=== PATIENT | female | born 1980 | race Caucasian/White ===

== ENCOUNTER → 2016-12-23 | Outpatient (CLI) | payer BC ==
[~2016-12-23] MED LIST: DIAZ5 PO; DICL50TA3 PO; PERC5TAB12 PO; PRIL20CA9 PO; ROBA500T PO; TRAM50TA PO
[2016-12-23 15:48] LABS: AUTOMATED NEUTROPHIL # 7.9 TH/MM3 (1.8-7.7); BASOPHIL # 0.1 TH/MM3 (0-0.2); BASOPHIL % 0.5 % (0.0-2.0); EOSINOPHIL # 0.2 TH/MM3 (0-0.4); HEMATOCRIT 43.7 % (35.0-46.0); HEMO FLAGS DIFF FINAL; LYMPH % 22.3 % (9.0-44.0); LYMPHOCYTE # 2.5 TH/MM3 (1.0-4.8); MEAN CELL VOLUME 85.2 FL (80.0-100.0); MEAN CORPUSCULAR HEMOGLOBIN 27.9 PG (27.0-34.0); MEAN CORPUSCULAR HGB CONC 32.7 % (32.0-36.0); MONO % 5.3 % (0.0-8.0); NEUT % 69.9 % (16.0-70.0); PLATELET COUNT 239 TH/MM3 (150-450); RED BLOOD COUNT 5.13 MIL/MM3 (4.00-5.30); WHITE BLOOD COUNT 11.3 TH/MM3 (4.0-11.0)
[2016-12-23 15:52] LABS: BACTERIA, URINE RARE /hpf; BLOOD, URINE NEG (NEG); GLUCOSE,URINE NEG (NEG); KETONE, URINE NEG (NEG); MUCUS URINE FEW /lpf (OCC); NITRITE,URINE NEG (NEG); SQUAMOUS EPITHELIAL CELL URINE 3 /hpf (0-5); URINE COLOR LIGHT-YELLOW (YELLW/STRAW)
[2016-12-23 16:05] LABS: ANION GAP 9 MEQ/L (5-15); BICARBONATE 30.4 MEQ/L (21.0-32.0); BLOOD UREA NITROGEN 15 MG/DL (7-18); CHLORIDE 102 MEQ/L (98-107); GLOMERULAR FILTRATION RATE 78 ML/MIN (>89); GLUCOSE,FASTING 100 MG/DL (74-99); POTASSIUM 4.3 MEQ/L (3.5-5.1); SODIUM (NA) 141 MEQ/L (136-145)
[2016-12-23 16:12] LABS: BHCG SCREEN QUALITATIVE LESS THAN 1 MIU/ML (0-5)
== END ==
LOC: CPRE 14:12
PROVIDERS: ATTEND Obstetrics & Gynecology
DX: Z01.812 Encounter for preprocedural laboratory examination (principal); R10.2 Pelvic and perineal pain; N94.10 Unspecified dyspareunia; N92.0 Excessive and frequent menstruation with regular cycle
CPT/HCPCS: 36415; 80048; 81001; 84703; 85025

== ENCOUNTER 2016-12-29 07:55 | Observation (INO) | payer BC ==
[~2016-12-29] VITALS: Ht 165.1 cm; Wt 88.5 kg
[~2016-12-29 07:55] MED LIST changes: -DIAZ5 PO; -PERC5TAB12 PO; -PRIL20CA9 PO; -ROBA500T PO; -TRAM50TA PO
[2016-12-29] MEDS ORDERED: METOPROLOL TARTRATE 25 MG TAB PO PRN (08:30)
[2016-12-29] MEDS ORDERED: INSULIN HUMAN REGULAR 1,000 UNITS/10 ML VIAL SQ PRN (08:30)
[2016-12-29] MEDS ORDERED: ceFAZolin 2 GM PREMIX 50 ML IV SCH (08:30)
[2016-12-29] MEDS ORDERED: DIAZ5 PO (08:39)
[2016-12-29] MEDS ORDERED: PERC5TAB12 PO (08:39)
[2016-12-29 08:45] VITALS: BP 126/81; PULSE 69; RESP 18; TEMP 98.4; O2SAT 100
[2016-12-29] MEDS ORDERED: SODIUM CHLORID 0.9% 500 ML IV SCH (09:00)
[2016-12-29] MEDS ORDERED: LACTATED RINGER'S 1000 ML IV SCH (09:00)
[2016-12-29] MEDS ORDERED: ACETAMINOPHEN 1000 MG/100 ML VIAL IV ONE (10:35)
[2016-12-29] MEDS ORDERED: FAMOTIDINE 20 MG/2 ML VIAL ONE (10:35)
[2016-12-29] MEDS ORDERED: PROPOFOL 200 MG/20 ML AMP IV ONE (12:00)
[2016-12-29] MEDS ORDERED: LACTATED RINGER'S 1000 ML INJ 1,000 ML IV ONE (12:00)
[2016-12-29] MEDS ORDERED: NEOSTIGMINE 3 MG/3 ML SYR IV ONE (12:00)
[2016-12-29] MEDS ORDERED: ONDANSETRON HCL 4 MG/2 ML VIAL IV PUSH ONE (12:00)
[2016-12-29] MEDS ORDERED: ESTROGENS CONJUGATED VAG CREA 15 APPL/30 GM TUBE ONE (12:10)
[2016-12-29] MEDS ORDERED: MIDAZOLAM HCL 2 MG/2 ML VIAL ONE (12:32)
[2016-12-29] MEDS ORDERED: DEXAMETHASONE SOD PHOS 4 MG/ML VIAL ONE (12:32)
[2016-12-29] MEDS ORDERED: ONDANSETRON HCL 4 MG/2 ML VIAL IVP PRN ×2 (14:45)
[2016-12-29] MEDS ORDERED: SODIUM CHLORIDE 0.9% FLUSH 10 ML FLUSH IV FLUSH PRN (14:45)
[2016-12-29] MEDS ORDERED: diphenhydrAMINE HCL 25 MG CAP PO PRN (14:45)
[2016-12-29] MEDS ORDERED: *morphine SULFATE 8 MG/ML PERIprocedure ONLY ONE ×3 (14:58→15:52)
[2016-12-29] MEDS ORDERED: *MEPERIDINE 25 MG INJ VIAL PERIprocedural Use ONLY ONE (15:01)
[2016-12-29] MEDS ORDERED: fentaNYL CITRATE 250 MCG/5 ML AMP ONE (15:01)
[2016-12-29] MEDS ORDERED: HYDROmorphone HCL PF 1 MG/ML VIAL IVP PRN (16:00)
[2016-12-29] MEDS: LACTATED RINGER'S 1000 ML INJ 1,000 ML IV SCH (16:00)
[2016-12-29] MEDS ORDERED: ZOLPIDEM TARTRATE 5 MG TAB PO PRN (16:00)
[2016-12-29] MEDS ORDERED: oxyCODONE/ACETAMINOPHEN 5 MG/325 MG TAB PO PRN (16:00)
[2016-12-29 17:00] VITALS: BP 119/63; PULSE 74; RESP 20; TEMP 97.3; O2SAT 100
[2016-12-29] MEDS: DOCUSATE SODIUM 100 MG CAP PO SCH (17:22)
[2016-12-29] MEDS: oxyCODONE/ACETAMINOPHEN 5 MG/325 MG TAB PO PRN (17:23)
[2016-12-29 21:00] VITALS: BP 122/73; PULSE 73; RESP 16; TEMP 97.1; O2SAT 100
[2016-12-29] MEDS: SODIUM CHLORIDE 0.9% FLUSH 10 ML FLUSH IV FLUSH SCH (21:00)
[2016-12-30] VITALS: BP 127/73; PULSE 81; RESP 16; TEMP 97.5; O2SAT 100
[2016-12-30] MEDS: oxyCODONE/ACETAMINOPHEN 5 MG/325 MG TAB PO PRN ×4 (00:04→15:15)
[2016-12-30] MEDS: LACTATED RINGER'S 1000 ML INJ 1,000 ML IV SCH ×2 (00:06→08:00)
[2016-12-30] MEDS: DOCUSATE SODIUM 100 MG CAP PO SCH ×2 (04:49→15:15)
[2016-12-30 05:00] VITALS: BP 134/90; PULSE 87; RESP 18; TEMP 97.5; O2SAT 100
[2016-12-30 07:50] VITALS: BP 108/58; PULSE 58; RESP 20; TEMP 98.8; O2SAT 100
[2016-12-30] MEDS ORDERED: HYDROmorphone HCL PF 1 MG/ML VIAL IV PUSH ONE (08:30)
[2016-12-30] MEDS: SODIUM CHLORIDE 0.9% FLUSH 10 ML FLUSH IV FLUSH SCH (08:59)
[2016-12-30 10:29] LABS: HEMATOCRIT 38.6 % (35.0-46.0); MEAN CELL VOLUME 84.8 FL (80.0-100.0); MEAN CORPUSCULAR HEMOGLOBIN 28.8 PG (27.0-34.0); PLATELET COUNT 230 TH/MM3 (150-450); RED BLOOD COUNT 4.54 MIL/MM3 (4.00-5.30); RED CELL DISTRIBUTION WIDTH 12.9 % (11.6-17.2); REVIEW FLAG FINAL; WHITE BLOOD COUNT 14.2 TH/MM3 (4.0-11.0)
[2016-12-30 11:08] LABS: ALKALINE PHOSPHATASE 43 U/L (45-117); ALT (GPT) 21 U/L (10-53); ANION GAP 6 MEQ/L (5-15); AST (GOT) 12 U/L (15-37); BLOOD UREA NITROGEN 8 MG/DL (7-18); CHLORIDE 104 MEQ/L (98-107); GLOMERULAR FILTRATION RATE 85 ML/MIN (>89); POTASSIUM 3.5 MEQ/L (3.5-5.1); SODIUM (NA) 138 MEQ/L (136-145); TOTAL BILIRUBIN ADULT 0.6 MG/DL (0.2-1.0)
--- NOTE | 2016-12-30 11:32 | HHI.DCPOC ---
Discharge Care Plan Diagnosis: (1) Dyspareunia in female (2) Pelvic pain Report Symptoms to Your Doctor -Temperate above 100.5 degrees -Redness, of incision or excessive or foul smelling drainage -Unusual pain or calf pain -Increased vaginal bleeding -Painful or difficulty urinating -Feelings of extreme sadness or anxiety after 2 weeks Goals to Promote Your Health * To prevent worsening of your condition and complications * To maintain your health at the optimal level Directions to Meet Your Goals Take your medications as prescribed Follow your dietary instruction Follow activity as directed Ensure plenty of rest for recovery Drink fluids for hydration Keep your appointments as scheduled Take your immunizations and boosters as scheduled If your symptoms worsen call your PCP, if no PCP go to Urgent Care Center or Emergency Room Smoking is Dangerous to Your Health. Avoid second hand smoke Call the 24-hour crisis hotline for domestic abuse at Hayde Mejía Dec 30, 2016 11:32
[2016-12-30 11:50] VITALS: BP 103/51; PULSE 65; RESP 20; TEMP 98.2; O2SAT 99
[2016-12-30 15:50] VITALS: BP 116/66; PULSE 63; RESP 20; TEMP 98.3; O2SAT 97
--- NOTE | 2016-12-30 17:37 | HHI.PR ---
Subjective Remarks Doing well, pain is well controlled, eating well. Objective Vital Signs Vital Signs Date Time Temp Pulse Resp B/P Pulse Ox O2 Delivery O2 Flow Rate FiO2 12/30/16 15:50 98.3 63 20 116/66 97 12/30/16 11:50 98.2 65 20 103/51 99 12/30/16 07:50 98.8 58 20 108/58 100 12/30/16 05:00 97.5 87 18 134/90 100 12/30/16 00:00 97.5 81 16 127/73 100 12/29/16 21:00 97.1 73 16 122/73 100 I/O 12/29/16 12/29/16 12/29/16 12/30/16 12/30/16 12/30/16 07:00 15:00 23:00 07:00 15:00 23:00 Intake Total 1200 ml 800 ml 1573 ml 120 ml Output Total 600 ml 1850 ml 1050 ml 1750 ml Balance 600 ml -1050 ml 523 ml -1630 ml Intake Oral 120 ml IV Total 800 ml 1573 ml Other 1200 ml Output Urine Total 400 ml 1850 ml 1050 ml 1750 ml Estimated Blood Loss 200 ml # Voids 1 # Bowel Movements 0 # Sanitary Pads 0 Pads 0 Pads 0 Pads Result Diagram: 12/30/16 1018 12/30/16 1018 Objective Remarks Chest is clear, regular rate and rhythm. Abdomen is soft and non-distended. Incision is clean and dry. Ext no CCE. A/P Assessment and Plan Post Op Day 1 Doing well Home today and return to office in two weeks. Jessenia Martínez MD Dec 30, 2016 17:37
--- NOTE | 2016-12-31 11:34 | MP ---
cc: Jessenia CULP. DATE OF SURGERY 12/29/2016 PREOPERATIVE DIAGNOSIS 1. Menorrhagia 2. Severe deep dyspareunia 3. Pelvic pain POSTOPERATIVE DIAGNOSIS 1. Menorrhagia 2. Severe deep dyspareunia 3. Pelvic pain PROCEDURE A laparoscopic-assisted vaginal hysterectomy, bilateral salpingectomy. ANESTHESIA General endotracheal intubation FINDINGS Examination under anesthesia, the vagina was clean. The cervix was clean without lesions. The uterus was normal in size, shape and consistency anteverted. The adnexa negative for masses. The laparoscopic exam revealed a normal uterus, normal tubes, normal ovaries. COMPLICATIONS None COUNTS Correct ESTIMATED BLOOD LOSS 100 cc FLUIDS Crystalloid CONDITION The patient tolerated the procedure well and went to the recovery room in good condition. INDICATIONS FOR THE PROCEDURE This is a lady who has been having severe pelvic pain, heavy bleeding and deep dyspareunia. On examination, her uterus was very tender. Her bladder was nontender. She had no bladder or bowel function issues. She is being brought to the operating room for a laparoscopic-assisted vaginal hysterectomy, bilateral salpingectomy. She understands the risks and agreed to proceed. PROCEDURE IN DETAIL The patient was taken to the operating room, identified by name band and verbally given a general anesthetic and placed in dorsal lithotomy position. She was prepped and draped in the usual sterile fashion and a time-out was taken. Once we all agreed, proceeded with the examination under anesthesia and placing the Masterson catheter. A weighted speculum was placed in the vagina, the anterior lip of the cervix grasped with a single-tooth tenaculum. The cervix was then cannulized with a Hulka clamp for uterine manipulation. Changing our gloves, we went to the umbilical area. A small subumbilical incision was made and a #5 trocar was introduced under direct vision without difficulty. A pneumoperitoneum was created with 3 liters of CO2. Inferior lateral to the umbilicus on the left we put a 10-mm port under direct vision and a 5-mm port on the right for manipulation. At this point we placed her in Trendelenburg, visualized all the internal organs and proceeded with the hysterectomy. The round ligaments were taken down bilaterally and a bladder flap was created with the harmonic 7 scalpel. The mesosalpinx of the fallopian tubes were then taken down with harmonic scalpel and the broad ligament was taken down to the level of the uterine vessels without difficulty. The uterine vessels were skeletonized and taken to the level of the internal cervical os with the harmonic scalpel. Hemostasis was excellent. Once this had been accomplished the uterus blanched nicely. The bladder flap was pushed back a little farther out of harm's way and, using the harmonic scalpel, we transected the cervix without difficulty after removing the Hulka clamp. Once this had been accomplished the Kleppinger forceps was used to burn the endocervix and the cervical bed. Small bleeders were coagulated with the Kleppinger and a large amount of fluid was used to clean the pelvis out. At this point to the morcellator was placed into the 12-mm port and the specimen was morcellated without difficulty. We turned this in for pathologic evaluation, then we cleaned out the gutters and the cul-de-sac with a large amount of fluid and placed a piece of Interceed over the cervical stump to prevent adhesions. At this point and the 10-mm port was removed and the fascia was repaired with a 2-0 Vicryl. The air was released through the second puncture and the laparoscope was removed under direct vision without difficulty. The skin was repaired with a 4-0 Monocryl in a subcuticular manner. At this point, all the instruments were removed. She tolerated the procedure well and went to the recovery room in good condition. R. MD DOMENICO Noe/LYNN /2:39 PM /11:24 AM
== END 2016-12-30 18:28 | disposition home or self-care (01) ==
LOC: HSDC 07:55 → HSDI 14:40 → HOCB 16:18
PROVIDERS: ADMIT Obstetrics & Gynecology; ATTEND Obstetrics & Gynecology
DX: D25.1 Intramural leiomyoma of uterus (principal); N88.8 Other specified noninflammatory disorders of cervix uteri; N83.8 Other noninflammatory disorders of ovary, fallopian tube and broad ligament
CPT/HCPCS: 80053; 85027; 86850; 86900; 86901; 88307; 92950; C1765; G0378; J0131; J0690; J1100; J1170; J2175; J2250; J2270; J2405; J2710; J3010; J7120